=== PATIENT | female | born 1950 | race Caucasian/White ===

== ENCOUNTER 2021-12-27 10:27 | Emergency (ER) | payer MEDICARE, OTHER ==
[~2021-12-27] VITALS: Ht 165.1 cm; Wt 90.0 kg
[2021-12-27 10:42] VITALS: BP 149/71
[2021-12-27 10:48] VITALS: BP 120/80
== END 2021-12-27 11:06 | disposition home or self-care (01) ==
LOC: ED 10:27
DX: S83.91XA Sprain of unspecified site of right knee, initial encounter (principal); E11.9 Type 2 diabetes mellitus without complications; X58.XXXA Exposure to other specified factors, initial encounter; Z96.651 Presence of right artificial knee joint